=== PATIENT | male | born 1985 | race Caucasian/White ===

== ENCOUNTER 2016-06-28 07:02 | Emergency (ER) | payer BC ==
--- NOTE | 2016-06-28 07:21 | UC ---
Throat Pain/Nasal Toni HPI - HPI Summary HPI Summary: sore throat x 7 days , + fever, chills, nasal congestion, cough - History of Current Complaint Chief Complaint: UCRespiratory Stated Complaint: THROAT Time Seen by Provider: 06/28/16 07:08 Hx Obtained From: Patient Onset/Duration: Gradual Onset, Lasting Days - 7, Still Present Severity: Moderate Cough: Nonproductive Associated Signs & Symptoms: Positive: Nasal Discharge, Fever. Negative: Wheezing, Sinus Discomfort, Rash - Allergies/Home Medications Allergies/Adverse Reactions: Allergies Allergy/AdvReac Type Severity Reaction Status Date / Time Sulfa Drugs Allergy Unknown Verified 06/28/16 07:14 Reaction Details Home Medications: Home Medications Dextromethorphan-Phenylephrine [Vicks Dayquil Cold & Flu] 1 dose PO Q4HR PRN [History Confirmed 06/28/16] [id number] [Nyquil Severe Cold/Flu 5-6.25-10-325 mg/15Ml] 1 dose PO BEDTIME PRN 06/28/16 [History Confirmed 06/28/16] PMH/Surg Hx/FS Hx/Imm Hx Endocrine History Of: Denies: Diabetes Cardiovascular History Of: Denies: Hypertension, Pacemaker/ICD - Surgical History Surgical History: Yes Surgery Procedure, Year, and Place: left shoulder labrum repair - Family History Known Family History: Positive: Hypertension - Social History Alcohol Use: Weekly Alcohol Amount: 6 Substance Use Type: None Smoking Status (MU): Current Some Day Smoker Type: Cigarettes, Smokeless Tobacco Amount Used/How Often: 1/2 ppd Have You Smoked in the Last Year: Yes - Immunization History Most Recent Influenza Vaccination: none Most Recent Tetanus Shot: 11/14/12 Review of Systems Constitutional: Fever, Chills Skin: Negative Eyes: Negative ENT: Sore Throat, Nasal Discharge Respiratory: Cough Cardiovascular: Negative Gastrointestinal: Negative All Other Systems Reviewed And Are Negative: Yes Physical Exam Triage Information Reviewed: Yes Appearance: Well-Appearing, No Pain Distress, Well-Nourished Vital Signs: Initial Vital Signs Temp 100.1 F 06/28/16 07:06 Pulse 86 06/28/16 07:06 Resp 18 06/28/16 07:06 BP 133/61 06/28/16 07:06 Pulse Ox 100 06/28/16 07:06 Vital Signs Reviewed: Yes Eyes: Positive: Conjunctiva Clear ENT: Positive: Normal ENT inspection, Hearing grossly normal, Pharyngeal erythema, Nasal congestion. Negative: Nasal drainage Dental Exam: Normal Neck: Positive: Supple, Nontender, No Lymphadenopathy Respiratory: Positive: Chest non-tender, Lungs clear, Normal breath sounds, No respiratory distress Cardiovascular: Positive: RRR, No Murmur, Pulses Normal Abdominal Exam: Normal Skin Exam: Normal Throat Pain/Nasal Course/Dx - Differential Dx/Diagnosis Provider Diagnoses: strep pharyngitis Discharge - Discharge Plan Condition: Stable Disposition: HOME Prescriptions: Amoxicillin (*) 875 mg PO BID #20 tab Patient Education Materials: Strep Throat (ED) Referrals: No Primary Care Phys,NOPCP [Primary Care Provider] - If Needed
[2016-06-28 07:30] VITALS: BP 144/78
== END 2016-06-28 07:30 | disposition home or self-care (01) ==
LOC: UCCORT 07:02
DX: J02.0 Streptococcal pharyngitis (principal); Z88.2 Allergy status to sulfonamides; Z72.0 Tobacco use
CPT/HCPCS: 87651; 99212; G0463

== ENCOUNTER 2016-07-20 07:56 | Emergency (ER) | payer BC ==
[2016-07-20 08:25] VITALS: BP 131/85
--- NOTE | 2016-07-20 08:34 | UC ---
Throat Pain/Nasal Toni HPI - HPI Summary HPI Summary: TWO DAYS OF SORE THROAT , HAS BEEN EXPOSED TO KNOWN STREP CONTACTS RECENTLY. - History of Current Complaint Chief Complaint: UCRespiratory Stated Complaint: SORE THROAT Time Seen by Provider: 07/20/16 08:04 Hx Obtained From: Patient Onset/Duration: Gradual Onset, Lasting Days, Still Present Severity: Moderate Cough: None Associated Signs & Symptoms: Positive: Dysphagia, Hoarseness, Fever - Epiglottits Risk Factors Epiglottis Risk Factors: Negative - Allergies/Home Medications Allergies/Adverse Reactions: Allergies Allergy/AdvReac Type Severity Reaction Status Date / Time Sulfa Drugs Allergy Unknown Verified 07/20/16 08:06 Reaction Details Home Medications: Home Medications Ibuprofen TAB* [Motrin TAB* 800 MG] 800 mg PO Q6H PRN 07/20/16 [History Confirmed 07/20/16] PMH/Surg Hx/FS Hx/Imm Hx Previously Healthy: Yes Endocrine History Of: Denies: Diabetes Cardiovascular History Of: Denies: Hypertension, Pacemaker/ICD - Surgical History Surgical History: Yes Surgery Procedure, Year, and Place: left shoulder labrum repair 03/2015 at [facility] - Family History Known Family History: Positive: Hypertension - Social History Occupation: Employed Full-time Lives: With Family Alcohol Use: Weekly Alcohol Amount: 6 Substance Use Type: None Smoking Status (MU): Current Some Day Smoker Type: Cigarettes, Smokeless Tobacco Amount Used/How Often: 1/2 ppd Have You Smoked in the Last Year: Yes Cessation Counseling: Patient Advised to Stop - Immunization History Most Recent Influenza Vaccination: none Most Recent Tetanus Shot: 11/14/12 Review of Systems Constitutional: Fever Skin: Negative Eyes: Negative ENT: Sore Throat Respiratory: Negative Cardiovascular: Negative Gastrointestinal: Negative Genitourinary: Negative Motor: Negative Neurovascular: Negative Musculoskeletal: Negative Neurological: Negative Psychological: Negative All Other Systems Reviewed And Are Negative: Yes Physical Exam Triage Information Reviewed: Yes Appearance: Well-Appearing, No Pain Distress, Well-Nourished Vital Signs: Initial Vital Signs Temp 98.3 F 07/20/16 08:00 Pulse 74 07/20/16 08:00 Resp 20 07/20/16 08:00 BP 131/85 07/20/16 08:00 Vital Signs Reviewed: Yes Eye Exam: Normal ENT: Positive: Pharyngeal erythema, TMs normal, Tonsillar swelling Dental Exam: Normal Neck exam: Normal Neck: Positive: Supple, Nontender Respiratory Exam: Normal Respiratory: Positive: Chest non-tender, Lungs clear, Normal breath sounds, No respiratory distress Cardiovascular Exam: Normal Cardiovascular: Positive: RRR, No Murmur, Pulses Normal Abdominal Exam: Normal Abdomen Description: Positive: Nontender, No Organomegaly Musculoskeletal Exam: Normal Musculoskeletal: Positive: Strength Intact Neurological Exam: Normal Psychological Exam: Normal Skin Exam: Normal Throat Pain/Nasal Course/Dx - Differential Dx/Diagnosis Differential Diagnosis/HQI/PQRI: Pharyngitis, Sinusitis, Tonsillitis, URI Provider Diagnoses: STREP TONSILLITIS Discharge - Discharge Plan Condition: Stable Disposition: HOME Prescriptions: Amoxicillin/Clavulanate TAB* [Augmentin TAB 875*] 875 mg PO BID #20 tab Patient Education Materials: Strep Throat (ED) Referrals: [facility] [place] [facility] [Outside] No Primary Care Phys,NOPCP [Primary Care Provider] -
== END 2016-07-20 08:49 | disposition home or self-care (01) ==
LOC: UCCORT 07:56
DX: J03.00 Acute streptococcal tonsillitis, unspecified (principal); Z88.2 Allergy status to sulfonamides; Z72.0 Tobacco use
CPT/HCPCS: 87651; 99212; G0463

== ENCOUNTER 2017-09-23 08:33 | Emergency (ER) | payer BC ==
[2017-09-23 09:15] VITALS: BP 134/65
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
== END 2017-09-23 10:05 | disposition home or self-care (01) ==
LOC: UCCORT 08:33
DX: T22.212A Burn of second degree of left forearm, initial encounter (principal); T31.0 Burns involving less than 10% of body surface; T79.9XXA Unspecified early complication of trauma, initial encounter; X15.0XXA Contact with hot stove (kitchen), initial encounter; Y93.9 Activity, unspecified; Y92.9 Unspecified place or not applicable; Z88.2 Allergy status to sulfonamides
CPT/HCPCS: 99212; G0463

== ENCOUNTER 2019-05-29 16:19 | Emergency (ER) | payer BC ==
[2019-05-29 17:31] VITALS: BP 115/73
--- NOTE | 2019-05-29 18:10 | UC ---
Throat Pain/Nasal Toni HPI - HPI Summary HPI Summary: 33-year-old male comes in with a chief complaint of sore throat and upper respiratory tract infection symptoms for one week. Had flulike illness with bodyaches fevers chills that's gradually improving. He continues to have some rhinorrhea and a prescription sore throat. His girlfriend found out today that she has strep throat. He does have a sore throat is worse with swallowing. He has been taking [id number] medications which to help some symptoms. - History of Current Complaint Chief Complaint: UCGeneralIllness Stated Complaint: FEVER,COUGH Time Seen by Provider: 05/29/19 18:00 Pain Intensity: 0 - Allergies/Home Medications Allergies/Adverse Reactions: Allergies Allergy/AdvReac Type Severity Reaction Status Date / Time Sulfa (Sulfonamide Allergy Unknown Verified 05/29/19 17:31 Antibiotics) Reaction Details PMH/Surg Hx/FS Hx/Imm Hx Previously Healthy: Yes - Surgical History Surgical History: Yes Surgery Procedure, Year, and Place: left shoulder labrum repair - Family History Known Family History: Positive: Hypertension - Social History Alcohol Use: Rare Alcohol Amount: 6 Substance Use Type: None Smoking Status (MU): Heavy Every Day Tobacco Smoker Type: Cigarettes Amount Used/How Often: 1/2 PPD Length of Time of Smoking/Using Tobacco: Since Age 18 Have You Smoked in the Last Year: Yes - Immunization History Most Recent Influenza Vaccination: none Most Recent Tetanus Shot: 11/14/12 Review of Systems All Other Systems Reviewed And Are Negative: Yes Constitutional: Positive: Fever, Other - SEE HPI Skin: Positive: Negative Eyes: Positive: Negative ENT: Positive: Sore Throat, Nasal Discharge, Sinus Congestion Respiratory: Positive: Cough Cardiovascular: Positive: Negative Gastrointestinal: Positive: Negative Motor: Positive: Negative Neurovascular: Positive: Negative Musculoskeletal: Positive: Myalgia Neurological: Positive: Negative Psychological: Positive: Negative Is Patient Immunocompromised?: No Physical Exam Triage Information Reviewed: Yes Appearance: Well-Appearing, No Pain Distress, Well-Nourished Vital Signs: Initial Vital Signs Temp 97.9 F 05/29/19 17:26 Pulse 84 05/29/19 17:26 Resp 17 05/29/19 17:26 BP 115/73 05/29/19 17:26 Pulse Ox 99 05/29/19 17:26 Vital Signs Reviewed: Yes Eye Exam: Normal Eyes: Positive: Conjunctiva Clear ENT: Positive: Pharyngeal erythema, Nasal congestion, Nasal drainage, TMs normal Neck: Positive: Supple Respiratory: Positive: Lungs clear, Normal breath sounds, No respiratory distress Cardiovascular: Positive: RRR Musculoskeletal: Positive: Strength Intact, ROM Intact Neurological: Positive: Alert, Muscle Tone Normal Psychological: Positive: Age Appropriate Behavior Skin Exam: Normal Throat Pain/Nasal Course/Dx - Course Course Of Treatment: Discussed viral and bacterial infections and the role of antibiotics. At this time because his girlfriend is positive for strep for 7 antibiotic to be used if he does not improve or worsens. - Differential Dx/Diagnosis Provider Diagnosis: Pharyngitis, Upper respiratory infection Discharge ED - Sign-Out/Discharge Documenting (check all that apply): Patient Departure All imaging exams completed and their final reports reviewed: No Studies - Discharge Plan Condition: Stable Disposition: HOME Prescriptions: Amoxicillin PO (*) [Amoxicillin 875 MG (*)] 875 mg PO BID #20 tab Patient Education Materials: Pharyngitis (ED), Upper Respiratory Infection (ED) Referrals: [facility] [place] [facility] REFERRAL [Outside] Additional Instructions: FOLLOW UP WITH YOUR DOCTOR IF NOT COMPLETELY IMPROVED. GET REEVALUATED SOONER IF NOT IMPROVING OR WORSE OR ANY QUESTIONS OR CONCERNS. - Billing Disposition and Condition Condition: STABLE Disposition: Home
== END 2019-05-29 18:16 | disposition home or self-care (01) ==
LOC: UCCORT 16:19
DX: J02.9 Acute pharyngitis, unspecified (principal); J06.9 Acute upper respiratory infection, unspecified; F17.210 Nicotine dependence, cigarettes, uncomplicated; Z88.2 Allergy status to sulfonamides
CPT/HCPCS: 87651; 99212; G0463